=== PATIENT | female | born 1995 | race American Indian/Alaskan Native ===

== ENCOUNTER 2018-07-02 15:38 | Outpatient (CLI) | payer MEDICAID | END 2018-07-02 17:51 | disposition home or self-care (01) | LOC: LAB 15:38 → TRG 17:31 → LAB 17:51 | PROVIDERS: ATTEND Obstetrics & Gynecology | DX: O26.893 Other specified pregnancy related conditions, third trimester (principal); Z67.41 Type O blood, Rh negative; Z3A.28 28 weeks gestation of pregnancy | CPT/HCPCS: 86850; 86900; 86901; 96372; J2790 ==

== ENCOUNTER 2018-07-09 21:49 | Emergency (ER) | payer MEDICAID ==
[2018-07-09 22:00] VITALS: BP 102/70
--- NOTE | 2018-07-09 22:20 | Emergency Department Report ---
Chief Complaint: Upper Respiratory Infection Stated Complaint: Flu symp, 7 mths preg Time Seen by Provider: 07/09/18 22:08 - HPI History of Present Illness: 6 M PREG EDC 12/12 CO CP AND SOB EKG AND LABS ORDERED TO MAIN FOR EVAL GIVEN PREG NO VAG BLEED OR DC LIFECYCLE OBGYN MSE COMPLETED - Exam Vital Signs: Vital Signs 07/09/18 22:00 Temperature 97.9 F Pulse Rate 138 H Respiratory 18 Rate Blood Pressure 102/70 [Right] O2 Sat by Pulse 100 Oximetry MSE screening note: Focused history and physical exam performed. Due to findings the following was ordered: ED Disposition for MSE Condition: Stable
[2018-07-09 22:56] LABS: Hematocrit 24.8 % (30.3-42.9); Hemoglobin 7.6 gm/dl (10.1-14.3); Mean Corpuscular HGB Conc 31 % (30-34); Platelet Count 192 K/mm3 (140-440); Red Blood Count 3.54 M/mm3 (3.65-5.03); Red Cell Distribution Width 18.2 % (13.2-15.2)
[2018-07-09 23:03] LABS: Mean Corpuscular Volume 70 fl (79-97)
[2018-07-09 23:32] LABS: Albumin 3.4 g/dL (3.9-5); BUN/Creatinine Ratio 13; Blood Urea Nitrogen 4 mg/dL (7-17); Calcium 8.7 mg/dL (8.4-10.2); Hemolysis Index 1
[2018-07-09 23:47] LABS: Alanine Aminotransferase < 5 units/L (7-56)
--- NOTE | 2018-07-10 05:31 | Emergency Department Report ---
- General Chief Complaint: Upper Respiratory Infection Stated Complaint: Flu symp, 7 mths preg Time Seen by Provider: 07/09/18 22:08 Source: patient Mode of arrival: Ambulatory Limitations: No Limitations - History of Present Illness Initial Comments: 23-year-old -[place] female reports being a weeks and having a few day history of cough, congestion, coryza, nasal discharge and MD Complaint: cough, rhinorrhea, nasal congestion -: days(s) Severity: mild Quality: dull Consistency: constant Improves With: nothing Worsens With: nothing Associated Symptoms: chills, rhinorrhea, nasal congestion, sore throat, cough. denies: diaphoresis, diarrhea, dysuria, right sweats, weight loss, epistaxis, hoarseness, ear pain - Related Data Allergies Allergy/AdvReac Type Severity Reaction Status Date / Time shellfish derived AdvReac Swelling Verified 07/02/18 17:43 ED Review of Systems ROS: Stated complaint: Flu symp, 7 mths preg Other details as noted in HPI Constitutional: denies: chills, fever Eyes: denies: eye pain, eye discharge, vision change ENT: denies: ear pain, throat pain Respiratory: cough. denies: shortness of breath, wheezing Cardiovascular: denies: chest pain, palpitations Endocrine: no symptoms reported Gastrointestinal: denies: abdominal pain, nausea, diarrhea Genitourinary: denies: urgency, dysuria, discharge Musculoskeletal: denies: back pain, joint swelling, arthralgia Skin: denies: rash, lesions Neurological: denies: headache, weakness, paresthesias Psychiatric: denies: anxiety, depression Hematological/Lymphatic: denies: easy bleeding, easy bruising ED Past Medical Hx - Past Medical History Previous Medical History?: No - Surgical History Past Surgical History?: No - Social History Smoking Status: Never Smoker Substance Use Type: None ED Physical Exam - General Limitations: No Limitations General appearance: alert, in no apparent distress - Head Head exam: Present: atraumatic, normocephalic - Eye Eye exam: Present: normal appearance, PERRL, EOMI - ENT ENT exam: Present: mucous membranes moist, other (nasal congestion bilaterally. Clear nasal drainage.) - Neck Neck exam: Present: normal inspection - Respiratory Respiratory exam: Present: normal lung sounds bilaterally. Absent: respiratory distress, wheezes, rales, rhonchi - Cardiovascular Cardiovascular Exam: Present: regular rate, normal rhythm, tachycardia. Absent: systolic murmur, diastolic murmur, rubs, gallop - GI/Abdominal GI/Abdominal exam: Present: soft, normal bowel sounds. Absent: guarding, rebound, hyperactive bowel sounds, hypoactive bowel sounds, organomegaly - Extremities Exam Extremities exam: Present: normal inspection - Back Exam Back exam: Present: normal inspection. Absent: tenderness, CVA tenderness (R), CVA tenderness (L) - Neurological Exam Neurological exam: Present: alert, oriented X3, CN II-XII intact - Psychiatric Psychiatric exam: Present: normal affect, normal mood - Skin Skin exam: Present: warm, dry, intact, normal color. Absent: rash ED Course Vital Signs 07/09/18 22:00 Temperature 97.9 F Pulse Rate 138 H Respiratory 18 Rate Blood Pressure 102/70 [Right] O2 Sat by Pulse 100 Oximetry ED Medical Decision Making - Lab Data Result diagrams: 07/09/18 22:18 07/09/18 22:18 - Medical Decision Making 23-year-old female [facility] department complaining of a few day history of worsening coryza associated with nausea, aches and pains and sore throat. Flu swab and strep swab was negative. No abdominal pain or dysuria noted. She reports no presyncope. Attempted to discuss the laboratory data with patient, however, she had eloped from the emergency department before doing so tempers made to call she is unable to be reached Critical care attestation.: If time is entered above; I have spent that time in minutes in the direct care of this critically ill patient, excluding procedure time. ED Disposition Clinical Impression: URI (upper respiratory infection) Disposition: ELOPED Is pt being admited?: No Does the pt Need Aspirin: No Condition: Stable Referrals: MIGUEL MORALES MD [Primary Care Provider] - 3-5 Days
== END 2018-07-10 02:45 | disposition left against medical advice (07) ==
LOC: ED 21:49
DX: O99.512 Diseases of the respiratory system complicating pregnancy, second trimester (principal); J02.9 Acute pharyngitis, unspecified; Z91.013 Allergy to seafood; Z3A.28 28 weeks gestation of pregnancy
CPT/HCPCS: 36415; 80053; 85027; 87116; 87400; 87430; 93005; 93010; 99283

== ENCOUNTER 2018-08-30 14:19 | Outpatient (CLI) | payer OTHER, MEDICAID ==
[2018-08-30] MEDS ORDERED: LACTATED RINGERS 1,000 ML IV SCH (15:00)
[2018-08-30 15:23] VITALS: BP 114/65
[2018-08-30] MEDS ORDERED: LACTATED RINGERS 500 ML IV ONE (15:31)
[2018-08-30] MEDS ORDERED: ZOFRAN IV ONE (15:48)
[2018-08-30 15:50] LABS: Bacteria,Urine 1+ /HPF (Negative); Bilirubin,Urine NEG (Negative); Blood,Urine NEG (Negative); Color,Urine Yellow (Yellow); Mucus,Urine FEW /HPF; Protein,Urine <15 mg/dL mg/dL (Negative); Urobilinogen,Urine < 2.0 mg/dL (<2.0)
[2018-08-30 17:35] LABS: Amphetamine Screen,Urine PRESUMPTIVE NEGATIVE; Benzodiazepines Screen,Urine PRESUMPTIVE NEGATIVE; Cocaine Screen,Urine PRESUMPTIVE NEGATIVE; Methadone Screen,Urine PRESUMPTIVE NEGATIVE; Opiate Screen,Urine PRESUMPTIVE NEGATIVE
[2018-08-30 18:07] LABS: Cannabinoid Screen,Urine PRESUMPTIVE POSITIVE
[2018-08-30] MEDS ORDERED: LACTATED RINGERS ONE (18:27)
[2018-08-30] MEDS ORDERED: LACTATED RINGERS 1,000 ML IV ONE (18:27)
== END 2018-08-30 17:20 | disposition home or self-care (01) ==
LOC: TRG 14:19
PROVIDERS: ATTEND Obstetrics & Gynecology
DX: O62.9 Abnormality of forces of labor, unspecified (principal); O21.2 Late vomiting of pregnancy; Z3A.36 36 weeks gestation of pregnancy
CPT/HCPCS: 59025; 80307; 81001; 96361; 96374; J2405; J7120; 96360

== ENCOUNTER 2018-09-22 23:46 | Inpatient (IN) | payer OTHER, MEDICAID ==
[2018-09-23] MEDS ORDERED: AMPICILLIN/NS 2 GM/100 ML 2 GM/100 ML BAG IV ONE (00:26)
[2018-09-23] MEDS ORDERED: XYLOCAINE 2% INFILTRATI ONE ×3 (00:26→07:08)
[2018-09-23] MEDS ORDERED: BRETHINE SUB-Q PRN (00:26)
[2018-09-23] MEDS ORDERED: NUBAIN IV PRN (00:26)
--- NOTE | 2018-09-23 00:42 | History and Physical Report ---
History of Present Illness Date of examination: 09/23/18 Date of admission: 09/23/18 Chief complaint: Contractions History of present illness: 23 year old presents to L&D in labor. Patient states her contractions began at 8:00 PM. Patient denies leaking of fluid or vaginal bleeding. Patient received care at [facility] and records are [facility]avan[facility]. LMP 12/18/17. EDC 09/24/18. significant for the following: late entry to care, Rh negative, anemia, GBS positive. labs are as follows: O negative, antibody screen negative, rubella immune, HIV negative, hepatitis B surface antigen negative, RPR nonreactive, hemoglobin electrophoresis AA, gonorrhea negative, chlamydia negative, trichomonas negative, quad screen negative, GBS positive. Past History Past Medical History: no pertinent history Past Surgical History: no surgical history [employer]MI[employer]IAN History: abnormal PAP smear. denies: chlamydia, gonorrhea, hepatitis B, hepatitis C, herpes, HIV, syphilis, trichomonas Family/Genetic History: none Social history: single, lives with family, full code. denies: smoking, alcohol abuse, prescription drug abuse, IV drug use - Obstetrical History Expected Date of Delivery: 09/24/18 Actual Gestation: 39 Week(s) 6 Day(s) : 1 Para: 0 Hx # Term Pregnancies: 0 Number of Pregnancies: 0 Spontaneous Abortions: 0 Induced : 0 Number of Living Children: 0 Medications and Allergies Allergies Allergy/AdvReac Type Severity Reaction Status Date / Time shellfish derived AdvReac Severe Swelling Verified 08/30/18 14:28 Active Meds: Active Medications Ephedrine Sulfate (Ephedrine Sulfate) 10 mg IV Q2M PRN PRN Reason: Hypotension Oxytocin/Sodium Chloride (Pitocin/Ns 20 Unit/1000ml Drip) 20 units in 1,000 mls @ 125 mls/hr IV DIRECT ALICIA Lactated Ringer's (Lactated Ringers) 1,000 mls @ 125 mls/hr IV DIRECT ALICIA Ampicillin Sodium (Ampicillin/Ns 2 Gm/100 Ml) 2 gm in 100 mls @ 100 mls/hr IV ONCE ONE; Protocol Stop: 09/23/18 01:25 Ampicillin Sodium (Ampicillin/Ns 1 Gm/50 Ml) 1 gm in 50 mls @ 100 mls/hr IV Q4HR ALICIA; Protocol Lidocaine (Xylocaine 2%) 20 ml INFILTRATI ONCE ONE Stop: 09/23/18 00:27 Nalbuphine HCl (Nubain) 10 mg IV Q2H PRN PRN Reason: Pain, Moderate (4-6) Terbutaline Sulfate (Brethine) 0.25 mg SUB-Q ONCE PRN PRN Reason: Hyperstimulation/Hypertonicity Review of Systems All systems: negative (contractions) - Vital Signs Vital signs: Vital Signs Pulse Pulse Ox 68 92 09/23/18 00:02 09/23/18 00:02 Temp Pulse Resp BP Pulse Ox 98 F 109 H 99 09/23/18 00:09 09/23/18 00:04 09/23/18 00:04 - Physical Exam Abdomen: Positive: normal appearance, soft. Negative: distention, tenderness, guarding, rigidity Genitourinary (Female): Positive: normal external genitalia, normal perenium. Negative: perineal/vulvar lesions (no lesions seen on careful exam with bright light upon admission) Vagina: Positive: normal moisture Uterus: Positive: enlarged Anus/Rectum: Positive: normal perianal skin Extremities: Positive: normal - Obstetrical FHR: category 1 Uterine Contraction Monitor Mode: External Cervical Dilatation: 2 Cervical Effacement Percentage: 100 station: =1 Uterine Contraction Pattern: Regular Uterine Contraction Intensity: Moderate Results Result Diagrams: 09/23/18 00:05 All other labs normal. Assessment and Plan A: at 39 weeks, 6 days gestation. Active labor. GBS positive. P: Admit. GBS prophylaxis. EFM. Anticipate vaginal .
[2018-09-23] MEDS: LACTATED RINGERS 1,000 ML IV SCH ×3 (00:46→02:47)
[2018-09-23 01:12] LABS: Hemoglobin 9.8 gm/dl (10.1-14.3); Mean Corpuscular Volume 70 fl (79-97)
[2018-09-23 01:13] LABS: Mean Corpuscular HGB Conc 31 % (30-34); Platelet Count 172 K/mm3 (140-440); Red Cell Distribution Width 23.6 % (13.2-15.2)
[2018-09-23] MEDS ORDERED: MARCAINE 0.25% INFILTRATI ONE (03:17)
--- NOTE | 2018-09-23 03:19 | Anesthesia Day of Surgery ---
Anesthesia Day of Surgery - Day of Surgery Patient Examined: Yes Patient H&P Reviewed: Yes Patient is NPO: No
--- NOTE | 2018-09-23 03:19 | Anesthesia Consultation ---
Anesthesia Consult and Med Hx Date of service: 09/23/18 - Airway Anesthetic Teeth Evaluation: Good ROM Head & Neck: Adequate Mental/Hyoid Distance: Adequate Mallampati Class: Class I Intubation Access Assessment: Good - Pulmonary Exam CTA: Yes - Cardiac Exam Cardiac Exam: RRR - Pre-Operative Health Status ASA Pre-Surgery Classification: ASA2 Proposed Anesthetic Plan: Epidural - Pulmonary Hx Asthma: No COPD: No Hx Pneumonia: No - Cardiovascular System Hx Hypertension: No - Central Nervous System Hx Seizures: No Hx Psychiatric Problems: No - Endocrine Hx Renal Disease: No Hx End Stage Renal Disease: No Hx Hypothyroidism: No Hx Hyperthyroidism: No - Hematic Hx Anemia: Yes (Patient reported taking iron) Hx Sickle Cell Disease: No - Other Systems Hx Alcohol Use: No
[2018-09-23] MEDS ORDERED: NARCAN 2 MG/2 ML IV PRN (03:20)
[2018-09-23] MEDS ORDERED: fentaNYL-BUPIV 2 MCG/ML-0.125% 200 MCG/100 ML BAG EPIDURAL SCH (04:00)
[2018-09-23] MEDS ORDERED: AMPICILLIN/NS 1 GM/50 ML 1 GM/50 ML BAG IV SCH (04:30)
--- NOTE | 2018-09-23 05:03 | Event Note ---
Date: 09/23/18 SROM clear fluid, large amount. Cervix /-1.
[2018-09-23] MEDS: PITOCin/NS 20 UNIT/1000ML DRIP 20 UNITS/1,000 ML BAG IV SCH ×2 (07:25→08:34)
[2018-09-23] MEDS ORDERED: PHENERGAN PR PRN (07:43)
[2018-09-23] MEDS ORDERED: LANSINOH TP PRN (07:43)
--- NOTE | 2018-09-23 07:50 | Procedure Note ---
OB Delivery Note - Delivery Date of Delivery: 09/23/18 Surgeon: MIRTA DEE Estimated blood loss: other (150 cc) - Vaginal Delivery presentation: vertex Delivery position: OA Delivery induction: none Delivery monitor: external FHT, external uterine Route of delivery: Delivery placenta: spontaneous Delivery cord: 3 umbilical vessels, other (tight nuchal cord, clamped and cut on perineum) Delivery laceration: none Anesthesia: epidural Delivery comments: Spontaneous vaginal delivery at 07:18 of liveborn male infant over intact perineum with apgars of 8/9. Tight nuchal cord; clamped and cut on perineum after delivery of anterior shoulder. Baby placed skin to skin with mom immediately after delivery. Spontaneous cry and respirations. Baby bulb suctioned and dried. 3 vessel cord. Spontaneous delivery of intact placenta and membranes. EBL 150 cc. Pitocin to IV fluids after delivery of placenta. Fundus firm and midline. No lacerations noted. Sponge count correct. Vaginal sweep negative. Mother and baby stable in birthing room.
[2018-09-23] MEDS ORDERED: SODIUM CHLORIDE FLUSH SYRINGE 10 ML IV NR (08:00)
[2018-09-23] MEDS: TUCKS PAD TP PRN (11:39)
[2018-09-23] MEDS: IBUPROFEN PO SCH ×3 (11:39→23:06)
--- NOTE | 2018-09-23 15:15 | Post Anesthesia Evaluation ---
- Post Anesthesia Evaluation Patient Participated: Yes Airway Patent: Yes Stable Respiratory Function: Yes Nausea/Vomiting: No Temp > 96.8F: Yes Pain Manageable: Yes Adequeate Hydration: Yes Anesthesia Complications: No Block Receding Appropriately: Yes Patient on Ventilator: No
[2018-09-23 20:11] LABS: Hemoglobin 7.7 gm/dl (10.1-14.3)
[2018-09-23] MEDS ORDERED: MILK OF MAGNESIA PO PRN (22:00)
[2018-09-24] MEDS: IBUPROFEN PO SCH ×5 (05:21→23:56)
[2018-09-24] MEDS ORDERED: INFED IM ONE (11:00)
--- NOTE | 2018-09-24 11:54 | Progress Note ---
Assessment and Plan - Patient Problems (1) (normal spontaneous vaginal delivery) Current Visit: Yes Status: Acute Plan to address problem: Continue routine PP orders Anticipate d/c home in 24-48 hrs if H/H stable and remains asymptomatic (2) Anemia Current Visit: Yes Status: Acute Qualifiers: Anemia type: other cause Other causes of anemia: chronic disease, other Qualified Code(s): D63.8 - Anemia in other chronic diseases classified elsewhere Plan to address problem: Infed 100 mg IM x 1 dose today Resume Ferrous sulfate 325mg po BID tomorrow Subjective - Subjective Date of service: 09/24/18 Principal diagnosis: ; anemia Interval history: See admission H & P, OB delivery summary and PP progress notes Patient reports: appetite normal, voiding normally, pain well controlled, flatus, bowel movement, ambulating normally [place]: doing well, bottle feeding (and with some difficulty) Objective - Vital Signs Latest vital signs: Vital Signs Temp Pulse Resp BP BP Pulse Ox 09/24/18 09:00 98.0 F 82 16 108/73 100 09/24/18 00:00 98.8 F 69 16 112/78 09/23/18 19:30 98.6 F 69 18 124/77 09/23/18 16:51 98.1 F 79 16 133/85 100 Intake and Output 09/23/18 09/24/18 09/24/18 23:59 07:59 15:59 Intake Total 2300 300 Output Total 400 Balance 1900 300 Intake: Oral 2000 Intake, Free Water 300 300 Output: Urine 400 Void 400 Other: Total, Intake Amount 1000 Total, Output Amount 400 Voiding Method Toilet # Voids 1 Void 1 - Exam Breasts: Present: normal Cardiovascular: Present: Regular rate Lungs: Present: Normal air movement Abdomen: Present: soft, normal bowel sounds Uterus: Present: firm, fundal height below umbilicus (U-1) Extremities: Present: normal Deep Tendon Reflex Grade: Normal +2 - Labs Labs: Abnormal lab results 09/23/18 Range/Units 19:41 Hgb 7.7 L (10.1-14.3) gm/dl Hct 25.0 L D (30.3-42.9) %
--- NOTE | 2018-09-24 11:59 | Discharge Summary ---
Providers - Providers Date of Admission: 09/23/18 01:01 Date of discharge: 09/25/18 Attending physician: JAMES MCKEON MD Primary care physician: JAMES MCKEON MD Hospitalization Reason for admission: active labor Delivery: Episiotomy: none Laceration: none Other procedures: none complications: none Discharge diagnosis: IUP at term delivered, other (Anemia) baby: male Hospital course: See admission H & P, OB delivery summary and PP progress notes Condition at discharge: Stable Disposition: - TO HOME OR SELFCARE - Discharge Diagnoses (1) (normal spontaneous vaginal delivery) Status: Acute (2) Anemia Status: Acute Qualifiers: Anemia type: other cause Other causes of anemia: chronic disease, other Qualified Code(s): D63.8 - Anemia in other chronic diseases classified elsewhere Plan - Provider Discharge Summary Activity: routine, no sex for 6 weeks, no heavy lifting 4 weeks, no strenuous exercise Diet: routine Instructions: routine Additional instructions: [] Smoking cessation referral if applicable(refer to patient education folder for contact #) [] Refer to [facility] Booklet Call your doctor immediately for: * Fever > 100.5 * Heavy vaginal bleeding ( >1 pad per hour) * Severe persistent headache * Shortness of breath * Reddened, hot, painful area to leg or breast * Drainage or odor from incision. * Continue daily oral iron supplementation after d/c home - Follow up plan Follow up: JAMES MCKEON MD [Primary Care Provider] - 7 Days
[2018-09-24] MEDS: TUCKS PAD TP PRN (23:56)
[2018-09-25] MEDS: IBUPROFEN PO SCH ×2 (05:26→18:25)
[2018-09-25 08:59] LABS: Hematocrit 24.7 % (30.3-42.9); Hemoglobin 7.4 gm/dl (10.1-14.3)
[2018-09-25] MEDS ORDERED: FEOSOL PO SCH (10:00)
[2018-09-25 16:31] VITALS: BP 117/78
== END 2018-09-25 18:36 | disposition home or self-care (01) | DRG 807 ==
LOC: TRG 23:46 → LD 09-23 01:01 → OB 09-23 10:36
PROVIDERS: ADMIT Obstetrics & Gynecology; ATTEND Obstetrics & Gynecology
PROC: 10E0XZZ Delivery of Products of Conception, External Approach (ICD-10-PCS; principal; 2018-09-23)
PROC: 3E0234Z Introduction of Serum, Toxoid and Vaccine into Muscle, Percutaneous Approach (ICD-10-PCS; 2018-09-23)
PROC: 3E0R3BZ Introduction of Anesthetic Agent into Spinal Canal, Percutaneous Approach (ICD-10-PCS; 2018-09-23)
PROC: 00HU33Z Insertion of Infusion Device into Spinal Canal, Percutaneous Approach (ICD-10-PCS; 2018-09-23)
DX: O99.824 Streptococcus B carrier state complicating childbirth (principal); Z37.0 Single live birth; Z3A.39 39 weeks gestation of pregnancy; Z91.013 Allergy to seafood; O69.81X0 Labor and delivery complicated by cord around neck, without compression, not applicable or unspecified; O99.02 Anemia complicating childbirth; D64.9 Anemia, unspecified; O26.893 Other specified pregnancy related conditions, third trimester; Z67.41 Type O blood, Rh negative
CPT/HCPCS: 36415; 85014; 85018; 85027; 85461; 86592; 86850; 86900; 86901; 88307; G0378; A6250; J0290; J1750; J2300; J2590; J2790; J7120